=== PATIENT | male | born 2000 | race Caucasian/White ===

== ENCOUNTER 2023-05-12 09:44 | Emergency (ER) | payer MEDICAID ==
[~2023-05-12] VITALS: Ht 177.8 cm; Wt 80.0 kg
[2023-05-12 09:49] VITALS: TEMP 98.2
[2023-05-12 09:55] LABS: COVID AG,FIA SOURCE NASAL SWAB
[2023-05-12 10:17] LABS: SARS-COV2 (COVID) ANTIGEN,FIA Negative (Negative)
[2023-05-12 10:18] LABS: INFLUENZA TYPE A NEGATIVE FOR TYPE A (NEGATIVE); INFLUENZA TYPE B NEGATIVE FOR TYPE B (NEGATIVE)
[2023-05-12] MEDS ORDERED: AMOX250C4 PO (10:19)
[2023-05-12] MEDS ORDERED: BENZ-227 PO (10:19)
[2023-05-12 10:51] LABS: RAPID GROUP A STREP NEGATIVE (NEGATIVE)
[2023-05-12 10:59] VITALS: BP 132/81; PULSE 66; RESP 16
== END 2023-05-12 11:01 | disposition home or self-care (01) ==
LOC: EMS 09:48
DX: J40 Bronchitis, not specified as acute or chronic (principal); J06.9 Acute upper respiratory infection, unspecified; Z20.822 Contact with and (suspected) exposure to COVID-19
CPT/HCPCS: 71045; 87430; 87804; 99284

== ENCOUNTER 2023-06-19 14:41 | Emergency (ER) | payer MEDICAID ==
[~2023-06-19] VITALS: Ht 170.2 cm; Wt 72.7 kg
[~2023-06-19 14:41] MED LIST: AMOX250C4 PO; BENZ-227 PO
[2023-06-19 14:47] VITALS: TEMP 98
[2023-06-19 15:25] LABS: COVID AG,FIA SOURCE NASAL SWAB
[2023-06-19 15:44] LABS: SARS-COV2 (COVID) ANTIGEN,FIA Negative (Negative)
[2023-06-19 15:49] LABS: INFLUENZA TYPE A NEGATIVE FOR TYPE A (NEGATIVE); INFLUENZA TYPE B NEGATIVE FOR TYPE B (NEGATIVE)
[2023-06-19] MEDS ORDERED: ACET-2080 PO (16:46)
[2023-06-19] MEDS ORDERED: IBUP-1554 PO (16:46)
[2023-06-19 16:54] VITALS: BP 138/79; PULSE 69; RESP 18
== END 2023-06-19 16:55 | disposition home or self-care (01) ==
LOC: EMS 14:47
DX: J06.9 Acute upper respiratory infection, unspecified (principal); J40 Bronchitis, not specified as acute or chronic; Z20.822 Contact with and (suspected) exposure to COVID-19
CPT/HCPCS: 87804; 99283